=== PATIENT | female | born 1995 | race Caucasian/White ===

== ENCOUNTER 2016-12-22 21:07 | Emergency (ER) | payer OTHER | END 2016-12-22 22:40 | disposition home or self-care (01) | LOC: ER 21:07 | DX: N73.9 Female pelvic inflammatory disease, unspecified (principal) | CPT/HCPCS: 36415; 96372; J0696 ==

== ENCOUNTER 2017-03-07 19:03 | Emergency (ER) | payer OTHER | END 2017-03-07 21:43 | disposition home or self-care (01) | LOC: ER 19:03 | DX: O99.89 Other specified diseases and conditions complicating pregnancy, childbirth and the puerperium (principal); R10.32 Left lower quadrant pain | CPT/HCPCS: 36415 ==